=== PATIENT | female | born 1945 | race Caucasian/White ===

== ENCOUNTER → 2020-11-01 | Outpatient (CLI) | payer MEDICARE ==
[~2020-11-01] MED LIST: CYCLOBENZAPRINE10 MG PO; ZOFRAN4 MG PO
== END ==
LOC: CT 08:54
DX: R93.89 Abnormal findings on diagnostic imaging of other specified body structures (principal); R91.1 Solitary pulmonary nodule
CPT/HCPCS: 71250

== ENCOUNTER → 2020-12-28 | Outpatient (CLI) | payer MEDICARE | LOC: LAB 08:50 | DX: E05.20 Thyrotoxicosis with toxic multinodular goiter without thyrotoxic crisis or storm (principal) | CPT/HCPCS: 36415; 84439; 84443; 84481 ==

== ENCOUNTER 2020-12-29 23:08 | Emergency (ER) | payer MEDICARE ==
[2020-12-30 00:01] LABS: HEMOGLOBIN 14.9 gm/dl (12.3-15.3); RED BLOOD COUNT 4.83 M/UL (4.00-5.10); WHITE BLOOD COUNT 11.8 K/UL (4.5-11.0)
[2020-12-30 00:23] LABS: BUN/CREATININE RATIO 22 (0-10)
[2020-12-30] MEDS ORDERED: CYCLOBENZAPRINE10 MG PO (04:13)
[2020-12-30] MEDS ORDERED: ZOFRAN4 MG PO (05:28)
== END 2020-12-30 05:30 | disposition home or self-care (01) ==
LOC: ER1 23:08
PROVIDERS: Physician Assistant
DX: S39.012A Strain of muscle, fascia and tendon of lower back, initial encounter (principal); R10.9 Unspecified abdominal pain; F17.210 Nicotine dependence, cigarettes, uncomplicated; Z90.710 Acquired absence of both cervix and uterus; Z88.5 Allergy status to narcotic agent; Z79.899 Other long term (current) drug therapy; X50.9XXA Other and unspecified overexertion or strenuous movements or postures, initial encounter
CPT/HCPCS: 72131; 80053; 81001; 85025; 87086; 96374; 96375; 96376; 99284; J1885; J2270; J2405; Q9967

== ENCOUNTER → 2021-02-04 | Outpatient (CLI) | payer MEDICARE | LOC: US 09:08 | DX: D18.00 Hemangioma unspecified site (principal) | CPT/HCPCS: 76700 ==

== ENCOUNTER → 2021-02-21 | Outpatient (CLI) | payer MEDICARE | LOC: MRI 09:59 | DX: D18.00 Hemangioma unspecified site (principal); K76.9 Liver disease, unspecified; R93.2 Abnormal findings on diagnostic imaging of liver and biliary tract | CPT/HCPCS: 74181 ==

== ENCOUNTER → 2021-04-08 | Outpatient (CLI) | payer MEDICARE | LOC: HEART 5 13:37 | DX: R01.1 Cardiac murmur, unspecified (principal); R93.1 Abnormal findings on diagnostic imaging of heart and coronary circulation; I35.8 Other nonrheumatic aortic valve disorders | CPT/HCPCS: 93306 ==

== ENCOUNTER → 2021-05-07 | Outpatient (CLI) | payer MEDICARE | LOC: LAB 09:35 | DX: E05.20 Thyrotoxicosis with toxic multinodular goiter without thyrotoxic crisis or storm (principal) | CPT/HCPCS: 36415; 84439; 84443 ==

== ENCOUNTER → 2021-06-07 | Outpatient (CLI) | payer MEDICARE | LOC: LAB 09:17 | DX: K76.9 Liver disease, unspecified (principal); R93.5 Abnormal findings on diagnostic imaging of other abdominal regions, including retroperitoneum | CPT/HCPCS: 36415; 82565; 84520 ==

== ENCOUNTER → 2021-06-10 | Outpatient (CLI) | payer MEDICARE | LOC: MRI 07:56 | DX: K76.9 Liver disease, unspecified (principal); R93.5 Abnormal findings on diagnostic imaging of other abdominal regions, including retroperitoneum | CPT/HCPCS: 74183; A9577 ==

== ENCOUNTER → 2021-11-11 | Outpatient (CLI) | payer MEDICARE | LOC: LAB 08:57 | DX: E05.20 Thyrotoxicosis with toxic multinodular goiter without thyrotoxic crisis or storm (principal) | CPT/HCPCS: 36415; 84443 ==

== ENCOUNTER → 2021-11-20 | Outpatient (CLI) | payer MEDICARE | LOC: LAB 12:57 | DX: E87.5 Hyperkalemia (principal) | CPT/HCPCS: 36415; 84132 ==

== ENCOUNTER → 2022-01-21 | Outpatient (CLI) | payer MEDICARE | LOC: LAB 07:56 | DX: E27.9 Disorder of adrenal gland, unspecified (principal) | CPT/HCPCS: 36415; 82533 ==

== ENCOUNTER → 2022-03-07 | Outpatient (CLI) | payer MEDICARE | LOC: LAB 08:22 | PROVIDERS: Internal Medicine | DX: E27.9 Disorder of adrenal gland, unspecified (principal) | CPT/HCPCS: 36415; 82024; 82530; 82533 ==

== ENCOUNTER → 2022-05-20 | Outpatient (CLI) | payer MEDICARE ==
[2022-05-20 09:29] LABS: HEMOGLOBIN 13.8 gm/dl (12.3-15.3); RED BLOOD COUNT 4.62 M/UL (4.00-5.10); WHITE BLOOD COUNT 7.2 K/UL (4.5-11.0)
[2022-05-20 09:48] LABS: BUN/CREATININE RATIO 25 (0-10)
== END ==
LOC: LAB 09:05
PROVIDERS: Internal Medicine
DX: Z51.81 Encounter for therapeutic drug level monitoring (principal); R53.83 Other fatigue; K21.9 Gastro-esophageal reflux disease without esophagitis; E78.5 Hyperlipidemia, unspecified; I10 Essential (primary) hypertension; Z79.899 Other long term (current) drug therapy; E55.9 Vitamin D deficiency, unspecified
CPT/HCPCS: 36415; 80053; 80061; 82607; 82746; 84439; 84443; 85025

== ENCOUNTER 2022-06-14 12:01 | Emergency (ER) | payer MEDICARE ==
[2022-06-14 13:03] LABS: HEMOGLOBIN 13.7 gm/dl (12.3-15.3); RED BLOOD COUNT 4.59 M/UL (4.00-5.10); WHITE BLOOD COUNT 9.2 K/UL (4.5-11.0)
[2022-06-14 14:27] LABS: BUN/CREATININE RATIO 25 (0-10)
[2022-06-14] MEDS ORDERED: HYDROCODON-ACE1 EAC4 PO (15:15)
== END 2022-06-14 15:24 | disposition home or self-care (01) ==
LOC: ER1 12:01
PROVIDERS: Emergency Medicine
DX: S09.90XA Unspecified injury of head, initial encounter (principal); S13.4XXA Sprain of ligaments of cervical spine, initial encounter; S33.5XXA Sprain of ligaments of lumbar spine, initial encounter; S30.1XXA Contusion of abdominal wall, initial encounter; S80.02XA Contusion of left knee, initial encounter; S40.021A Contusion of right upper arm, initial encounter; V49.50XA Passenger injured in collision with unspecified motor vehicles in traffic accident, initial encounter; Y92.410 Unspecified street and highway as the place of occurrence of the external cause
CPT/HCPCS: 70450; 71260; 72125; 73060; 73564; 80053; 82550; 82553; 84484; 85025; 93005; 96360; 99284; Q9967